=== PATIENT | male | born 1960 | race African-American/Black ===

== ENCOUNTER 2018-06-11 08:46 | Outpatient (CLI) | payer MEDICARE, OTHER ==
--- NOTE | 2018-06-11 18:02 | MRI ---
MRI LEFT SHOULDER: Date: 06-11-18 Provided Clinical History: Left shoulder pain. FINDINGS: Evaluation is limited by patient motion. There is low grade partial thickness undersurface tearing involving the anterior distal supraspinatus tendon at the footplate. There is bursal surface irregularity involving the distal conjoined tendon. The rotator cuff appears otherwise intact. The long head biceps tendon appears intact and normally l ocated. There is signal alteration in the region of the superior labrum that may reflect SLAP tear. The gleno id labrum and glenohumeral articular cartilage are suboptimally evaluated in the absence of joint dis tention. The amount of fluid within the glenohumeral joint appears physiologic. There is a physiologic amount of subacromial subdeltoid bursal fluid. Acromioclavicular joint osteoarthrosis is noted with mass effect upon the subjacent supraspinatus. Rotator cuff muscular volume appears preserved. IMPRESSION: 1. Low grade partial thickness undersurface tear involving anterior distal supraspinatus tendon at th e footplate. Bursal surface irregularity involving the distal conjoined tendon. 2. Findings suspicious for SLAP tear. 3. Acromioclavicular joint osteoarthrosis with mass effect upon the subjacent supraspinatus. POS: [facility]
== END 2018-06-11 08:47 | disposition home or self-care (01) ==
LOC: SCSMRI 08:46
PROVIDERS: ATTEND Family Medicine
DX: M25.512 Pain in left shoulder (principal); M54.12 Radiculopathy, cervical region; M75.112 Incomplete rotator cuff tear or rupture of left shoulder, not specified as traumatic; M19.012 Primary osteoarthritis, left shoulder

== ENCOUNTER 2018-06-18 15:27 | Outpatient (CLI) | payer MEDICARE, OTHER ==
--- NOTE | 2018-06-18 18:15 | MRI ---
MRI CERVICAL SPINE: 06/18/18 Multiplanar and multisequential imaging cervical spine obtained. INDICATIONS: Neck pain. Cervical radiculopathy. FINDINGS: Cervical vertebrae maintain normal height and alignment. There are mild to moderate degenerative boucher ges present. Mild loss of disc space at C5-6. Mild anterior osteophytes. No significant disc bulge or spondylosis seen at C2-3 or C3-4. At C4-5, broad based disc bulge and spondylosis efface the anterior subarachnoid space. There is evid ence of right foraminal narrowing due to disc bulge and uncinate hypertrophy at this level. At C5-6, there is a broad base disc bulge with spondylosis impinging on and flattening the anterior c ord. Bilateral foraminal stenosis secondary to facet and uncinate hypertrophy. At C6-7, minimal disc bulge and spondylosis flattening the thecal sac. The anterior subarachnoid spac e is preserved. Cord signal appears normally preserved. IMPRESSION: Disc bulge and spondylosis a t C4-5, C5-6, and C6-7. Findings are most pronounced at C5-6 where these changes impinge on and mildly flatten the anterior cord. There is associated foraminal stenosis as d escribed. POS: [facility]
== END 2018-06-18 15:28 | disposition home or self-care (01) ==
LOC: TBSIIMAG 15:27
PROVIDERS: ATTEND Orthopaedic Surgery
DX: M47.22 Other spondylosis with radiculopathy, cervical region (principal); M50.30 Other cervical disc degeneration, unspecified cervical region
CPT/HCPCS: 72141

== ENCOUNTER 2018-08-03 07:30 | Day surgery (SDC) | payer MEDICARE, OTHER ==
[2018-07-29 13:27] VITALS: BMI 36.6
[2018-08-03 08:12] LABS: #Basophils 0.1 thou/uL (0.0-0.2); #Eosinphils 0.2 thou/uL (0.0-0.7); #Lymphocytes 1.9 thou/uL (1.20-3.40); #Monocytes 0.5 thou/uL (0.11-0.59); #Neutrophils 2.4 thou/uL (1.40-6.50); %Lymphocytes 37.9 % (21.0-51.0); %Monocytes 9.1 % (0.0-10.0); Hemoglobin 15.3 g/dL (14.0-18.0); Mean Corpuscular HGB CONC 34.4 g/dL (32.0-36.0); Mean Corpuscular Hemoglobin 35.1 pg (27.0-31.0); Mean Platelet Volume 7.1 fL (7.4-10.4); Platelet Count 253 thou/uL (130-400); RBC Distribution Width 12.2 % (11.5-14.5); Red Blood Cell (RBC) Count 4.37 mill/uL (4.70-6.10)
[2018-08-03] MEDS ORDERED: CEFAZOLIN 2 GM/50 ML BAG ONE (08:25)
[2018-08-03 08:31] LABS: Anion Gap 12 mmol/L (10-20); BUN (Urea Nitrogen) 13 mg/dL (8.4-25.7); Calc. Creatinine Clearance 125 mL/min (70-130); Carbon Dioxide 24 mmol/L (22-29); Chloride 107 mmol/L (98-107); Estimated GFR-MDRD 86; Glucose 98 mg/dL (70-105); Potassium 4.6 mmol/L (3.5-5.1); Sodium 138 mmol/L (136-145)
[2018-08-03] MEDS ORDERED: Sodium Chloride 0.9% 10 ML ONE (09:20)
[2018-08-03] MEDS ORDERED: Midazolam HCl 2 mg/2 ml Vial ONE (09:54)
[2018-08-03] MEDS ORDERED: Fentanyl 250 MCG/5 ML VIAL ONE ×2 (10:07→11:06)
[2018-08-03] MEDS ORDERED: Enalaprilat Dihydrate 1.25 MG/ML VIAL ONE ×2 (11:52→12:27)
--- NOTE | 2018-08-03 12:09 | OP ---
DATE OF PROCEDURE: 08/03/2018 SURGEON: Tuan Chapman M.D. ACQUISITIONS ASSISTANT: Tyron Saxena PA-C PROCEDURE: Anterior cervical discectomy C5-6, interbody arthrodesis, intravertebral biomechanical de vice, local morselized autograft, demineralized bone matrix, anterior titanium instrumentation C5-6. PROCEDURE IN DETAIL: The patient was brought to the operating room and intubated. He was positioned supine with the head in modest extension on a gel-filled donut. Incision was made in the right prec ervical area and dissecting medial to sternocleidomastoid muscle, identified the anterior cervical sp ine and our level was confirmed by x-ray. We debrided anterior osteophytes, placed distraction acros s the disc space and using the operating microscope and microdissection techniques, completely remove d the C5-6 disc decompressing the neural elements. The bony endplates were then decorticated for the purpose of arthrodesis and appropriately sized intravertebral biomechanical PEEK device was brought into the field, filled with demineralized bone matrix, local morselized autograft, and tapped into pl matt securely at C5-6. Next, an anterior plate was brought into the field and secured to C5 and C6 us ing two 14 mm screws at each level. The wound was then extensively irrigated, immaculate hemostasis was secured. The wound was closed in anatomic layers.
[2018-08-03] MEDS ORDERED: Fentanyl 100 MCG/2 ML VIAL ONE ×2 (12:14→14:12)
[2018-08-03] MEDS ORDERED: tiZANidine HCl 4 MG TAB ONE (13:22)
[2018-08-03] MEDS ORDERED: Dexamethasone 20 MG/5 ML VIAL ONE (13:40)
[2018-08-03] MEDS ORDERED: Lidocaine 1% PF 5 ML VIAL ONE (13:40)
[2018-08-03] MEDS ORDERED: Esmolol 100 MG/10 ML VIAL ONE ×2 (13:40)
[2018-08-03] MEDS ORDERED: Ondansetron PF 4 MG/2 ML Vial ONE (13:40)
[2018-08-03] MEDS ORDERED: PHENYLEPHRINE-NS 100 MCG/ML 10 ML SYRINGE ONE (13:40)
[2018-08-03] MEDS ORDERED: Glycopyrrolate 0.2 MG/ML 5 ML SYRINGE ONE (13:40)
[2018-08-03] MEDS ORDERED: PROPOFOL 200 MG/20 ML VIAL ONE (13:40)
[2018-08-03] MEDS ORDERED: hydrALAZINE 20 MG/ML VIAL ONE (13:47)
[2018-08-03] MEDS ORDERED: Morphine 2 MG/ML SYRINGE ONE (15:35)
[2018-08-03] MEDS ORDERED: HYDROcodone/Acetaminophen 10/325 mg Tablet ONE (16:13)
--- NOTE | 2018-08-03 19:21 | EKG ---
Test Reason : PREOP Blood Pressure : / mmHG Vent. Rate : 068 BPM Atrial Rate : 068 BPM P-R Int : 184 ms QRS Dur : 082 ms QT Int : 400 ms P-R-T Axes : 040 016 028 degrees QTc Int : 425 ms Normal sinus rhythm Normal ECG No previous ECGs available Confirmed by IZZY QUINTANILLA, DR. Shepherd ([id number]) on 08/03/2018 7:21:19 PM Referred By: CAMELIA Confirmed By:DR. Joao MAGANA MD
== END 2018-08-03 18:05 | disposition home or self-care (01) ==
LOC: SDC 07:30
PROVIDERS: ATTEND Neurological Surgery
PROC: 0RG10A0 Fusion of Cervical Vertebral Joint with Interbody Fusion Device, Anterior Approach, Anterior Column, Open Approach (ICD-10-PCS; principal; 2018-08-03)
PROC: 0RT30ZZ Resection of Cervical Vertebral Disc, Open Approach (ICD-10-PCS; 2018-08-03)
DX: M50.122 Cervical disc disorder at C5-C6 level with radiculopathy (principal); E78.5 Hyperlipidemia, unspecified; Z79.1 Long term (current) use of non-steroidal anti-inflammatories (NSAID); Z79.2 Long term (current) use of antibiotics; Z79.82 Long term (current) use of aspirin; Z79.899 Other long term (current) drug therapy
CPT/HCPCS: 20930; 20936; 22551; 22845; 22853; 76001; 80048; 85025; 93005; 96374 ×3; C1713; C1776; 36415; 93010; 96375; 96376; J0360; J1100; J2001; J2250; J2270; J2405; J2704; J3010; J3490; J7620

== ENCOUNTER 2018-08-18 16:11 | Outpatient (CLI) | payer MEDICARE, OTHER ==
--- NOTE | 2018-08-18 19:21 | RAD ---
THREE VIEWS CERVICAL SPINE: 08/18/18 COMPARISON: 05/04/18 HISTORY: Status post fusion/surgery of the cervical spine. FINDINGS: Three views of the cervical spine shows the patient to be status post anterior fusion of C5 and C6 wi th a plate and screw. A disc spacer is seen in the intervening disc space. No prevertebral soft tissu e swelling is seen. The vertebral bodies demonstrate normal alignment without subluxation. IMPRESSION: Postsurgical changes of the cervical spine without evidence of complication. POS: [facility]
== END 2018-08-18 16:12 | disposition home or self-care (01) ==
LOC: TBSIIMAG 16:11
PROVIDERS: ATTEND Neurological Surgery
DX: M47.22 Other spondylosis with radiculopathy, cervical region (principal); Z98.1 Arthrodesis status
CPT/HCPCS: 72040

== ENCOUNTER 2018-10-21 14:55 | Outpatient (CLI) | payer MEDICARE, OTHER ==
--- NOTE | 2018-10-21 15:35 | RAD ---
FOUR VIEWS CERVICAL SPINE: DATE: 10/21/2018. 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 Followup neck surgery. COMPARISON: 08/18/2018. FINDINGS: Again noted are postsurgical changes related to anterior cervical fusion at C5-6 level with anterior plate and screws again transfixing this level with intradiskal prosthesis in place. There is no boucher ge in alignment of hardware and no hardware complication is appreciated. C1-T1 level are seen on the lateral view. The vertebral body heights are within normal limits and no fracture or subluxation is appreciated. Prevertebral soft tissues remain within normal limits. Minimal degenerative changes a re seen at the C4-5 and C6-7 levels. IMPRESSION: Stable postoperative changes of the cervical spine. POS: [facility]
== END 2018-10-21 14:56 | disposition home or self-care (01) ==
LOC: TBSIIMAG 14:55
PROVIDERS: ATTEND Neurological Surgery
DX: M47.22 Other spondylosis with radiculopathy, cervical region (principal); Z98.890 Other specified postprocedural states
CPT/HCPCS: 72040

== ENCOUNTER 2018-11-03 07:37 | Outpatient (CLI) | payer MEDICARE, OTHER ==
--- NOTE | 2018-11-03 09:03 | MRI ---
MRI OF THE LUMBAR SPINE WITHOUT CONTRAST: Date: 11/03/18 COMPARISON: 04/23/16. HISTORY: Back pain for a long time with right leg and hip pain. TECHNIQUE: Multiplanar, multisequence MR images were obtained of the lumbar spine without contrast. FINDINGS: No significant disc desiccation is seen. The vertebral bodies and intervertebral discs demonstrate no rmal height and alignment without fracture or subluxation. No marrow signal abnormality is present. The conus medullaris terminates normally at T12-L1. The prevertebral and paraspinal soft tissues are unremarkable. T12-L1: Unremarkable. L1-2: Unremarkable. L2-3: Unremarkable. L3-4: No significant posterior bulge or protrusion. Mild bilateral posterior facet arthrosis. No jimbo tral canal stenosis. No neural foraminal stenosis. L4-5: A small generalized concentric disc bulge is seen. Mild bilateral posterior facet arthrosis. N o central canal stenosis. Mild bilateral neural foraminal stenosis, left greater than right. L5-S1: Unremarkable. IMPRESSION: Mild degenerative changes of the lumbar spine as above. POS: [facility]
--- NOTE | 2018-11-03 09:29 | CT ---
CT BRAIN: HISTORY: Headache, R51. Lipomatosis, E88.2. TECHNIQUE: Noncontrast enhanced CT images of the brain obtained. FINDINGS: The brain is unremarkable. No evidence of intracranial masses, hemorrhages, strokes, or contusions s een. The ventricles are of normal size. IMPRESSION: Normal CT brain. POS: [facility]
== END 2018-11-03 07:38 | disposition home or self-care (01) ==
LOC: TBSIIMAG 07:37
PROVIDERS: ATTEND Neurological Surgery
DX: M54.5 Low back pain (principal); R51 Headache; E88.2 Lipomatosis, not elsewhere classified; M47.816 Spondylosis without myelopathy or radiculopathy, lumbar region
CPT/HCPCS: 70450; 72148